=== PATIENT | male | born 1985 | race Two or more races ===

== ENCOUNTER 2020-09-23 13:58 | Emergency (ER) | payer BC ==
[~2020-09-23] VITALS: Ht 182.9 cm; Wt 117.9 kg
[2020-09-23] MEDS ORDERED: LIDOCAINE 1% HCL (LOCAL ANESTH.) INJ 20ML MDV IJ ONE (15:15)
[2020-09-23] MEDS ORDERED: TETANUS-DIPTH-ACEL PERTUSSIS 0.5ML SYR Tdap IM ONE (15:45)
[2020-09-23 16:18] VITALS: BP 150/86
== END 2020-09-23 16:28 | disposition home or self-care (01) ==
LOC: ER 13:58
DX: S61.512A Laceration without foreign body of left wrist, initial encounter (principal); X58.XXXA Exposure to other specified factors, initial encounter; Y93.89 Activity, other specified; Y92.89 Other specified places as the place of occurrence of the external cause; Y99.8 Other external cause status
CPT/HCPCS: 12004; 90471; 90715; 99283; J2001